=== PATIENT | female | born 1980 | race Caucasian/White ===

== ENCOUNTER 2019-01-10 16:34 | Emergency (ER) | payer SELFPAY ==
[2019-01-10 16:57] VITALS: BP 128/77; PULSE 65; RESP 16; TEMP 99.3; O2SAT 98
--- NOTE | 2019-01-10 17:13 | ED PDOC ---
HPI: Abdomen Time Seen by Provider: 01/10/19 17:05 Chief Complaint (Nursing): Female Genitourinary Chief Complaint (Provider): Female Genitourinary History Per: Patient History/Exam Limitations: no limitations Onset/Duration Of Symptoms: Days (x2) Current Symptoms Are (Timing): Still Present Location Of Pain/Discomfort: RLQ, LLQ, Suprapubic Associated Symptoms: Back Pain, Urinary Symptoms. denies: Constipation Additional Complaint(s): 38 year old female with no past medical history who is presenting to the ED for evaluation of lower abdominal pain associated with trouble urinating onset 2 days ago. Patient also complains of generalized body aches, lower back pain, and left breast pain. She denies any fevers, cough, or any other medical complaints. PMD: none provided Past Medical History Reviewed: Historical Data, Nursing Documentation, Vital Signs Vital Signs: Last Vital Signs Temp 99.3 F 01/10/19 16:57 Pulse 65 01/10/19 16:57 Resp 16 01/10/19 16:57 BP 128/77 01/10/19 16:57 Pulse Ox 98 01/10/19 16:57 - Medical History PMH: No Chronic Diseases - Surgical History Surgical History: No Surg Hx - Family History Family History: States: Unknown Family Hx - Social History Current smoker - smoking cessation education provided: No Alcohol: None Drugs: Denies - Home Medications Home Medications: Ambulatory Orders Medication Instructions Recorded Cephalexin [Keflex] 500 mg PO TID #15 capsule 01/10/19 Metronidazole [Flagyl] 500 mg PO BID #14 tablet 01/10/19 Phenazopyridine HCl [Pyridium] 200 mg PO BID PRN #6 tablet 01/10/19 - Allergies Allergies/Adverse Reactions: Allergies Allergy/AdvReac Type Severity Reaction Status Date / Time No Known Allergies Allergy Verified 01/10/19 16:55 Review of Systems ROS Statement: Except As Marked, All Systems Reviewed And Found Negative Constitutional: Positive for: Other (body aches and left breast pain ). Negative for: Fever Respiratory: Negative for: Cough Gastrointestinal: Positive for: Abdominal Pain Genitourinary Female: Positive for: Other (trouble urinating ) Musculoskeletal: Positive for: Back Pain Physical Exam - Reviewed Nursing Documentation Reviewed: Yes Vital Signs Reviewed: Yes - Physical Exam Appears: Positive for: Non-toxic, No Acute Distress Head Exam: Positive for: ATRAUMATIC, NORMAL INSPECTION, NORMOCEPHALIC Skin: Positive for: Normal Color, Warm, DRY Eye Exam: Positive for: Normal appearance Cardiovascular/Chest: Positive for: Regular Rate, Rhythm. Negative for: Murmur Respiratory: Positive for: Normal Breath Sounds. Negative for: Respiratory Distress Gastrointestinal/Abdominal: Positive for: Soft, Tenderness (mild suprapubic tenderness ) Pelvic Exam: Positive for: External Exam Normal, Discharge (foul smelling discharge noted ). Negative for: No Cerv. Motion Tender, Tender Adnexa Back: Positive for: Normal Inspection. Negative for: L CVA Tenderness, R CVA Tenderness Extremity: Positive for: Normal ROM. Negative for: Deformity, Swelling Neurologic/Psych: Positive for: Alert, Oriented. Negative for: Motor/Sensory Deficits - ECG O2 Sat by Pulse Oximetry: 98 (RA) Pulse Ox Interpretation: Normal Medical Decision Making Medical Decision Making: Time: 17:08 Plan: --ED Urine --ED Urine Dipstick --Urine Culture --Urinalysis After pelvic exam, Chlamydia/GC RNA, TMA ordered. Scribe Attestation: Documented by, Kaelyn Beltran acting as a scribe for Katharine Gee PA-C. Provider Scribe Attestation: All medical record entries made by the Scribe were at my direction and personally dictated by me. I have reviewed the chart and agree that the record accurately reflects my personal performance of the history, physical exam, medical decision making, and the department course for this patient. I have also personally directed, reviewed, and agree with the discharge instructions and disposition. Disposition - Clinical Impression Clinical Impression: Female genitourinary symptoms - Patient ED Disposition Is Patient to be Admitted: No - Disposition [facility] Disposition: Routine/Home Disposition Time: 18:01 Condition: FAIR Prescriptions: Cephalexin [Keflex] 500 mg PO TID #15 capsule Metronidazole [Flagyl] 500 mg PO BID #14 tablet Phenazopyridine HCl [Pyridium] 200 mg PO BID PRN #6 tablet PRN Reason: Urinary Discomt Instructions: Bacterial Vaginosis (DC), Dysuria, Adult (DC) Forms: [facility] ED School/Work Excuse Print Language: CHADIAN
[2019-01-10 17:39] LABS: SQUAMOUS EPITHIAL 13 /hpf (0-5); URINE BILIRUBIN NEGATIVE (NEGATIVE); URINE BLOOD NEGATIVE (NEGATIVE); URINE CLARITY CLOUDY (Clear); URINE COLOR YELLOW (YELLOW); URINE GLUCOSE (UA) NEG (NEGATIVE); URINE LEUKOCYTE ESTERASE MOD Leu/uL (Negative); URINE PROTEIN NEGATIVE (NEGATIVE)
== END 2019-01-10 19:05 | disposition home or self-care (01) ==
LOC: H.ER 16:34
DX: N94.9 Unspecified condition associated with female genital organs and menstrual cycle (principal)